=== PATIENT | female | born 1990 | race Caucasian/White ===

== ENCOUNTER → 2017-07-14 16:37 | Outpatient (CLI) | payer MEDICAID, SELFPAY ==
[2017-07-16 07:17] LABS: Hep A Ab, IgM Negative (Negative); Hepatitis B Core Antibody IgM Negative (Negative); Hepatitis B Surface Antigen Negative (Negative)
[2017-07-18 12:37] LABS: HIV Screen 4th Generation wRfx Non Reactive (Non Reactive); Hepatitis C Antibody <0.1 s/co ratio (0.0-0.9)
[2017-07-18 12:39] LABS: Rapid Plasma Reagin Ab Titer Non Reactive (NonRea<1:1)
[2017-07-18 12:39] LABS: Neisseria gonorrhoeae, NAA Negative (Negative)
== END ==
PROVIDERS: Family Provider Family Medicine; PCP Family Medicine; Visit Provider Nurse Practitioner Obstetrics & Gynecology
DX: Z72.51 High risk heterosexual behavior (principal)
CPT/HCPCS: 36415; 80074; 86592; 86703; 87491; 87591; G0432

== ENCOUNTER → 2017-08-28 13:08 | Outpatient (CLI) | payer MEDICAID, SELFPAY ==
--- NOTE | 2017-08-28 13:11 | MR_ITS ---
MR head/brain wo/w con HISTORY: Long-standing headaches. Severe migraine many years [different areas ITS.REASON: headache ORDERING PHYSICIAN: Mey Stanford MD PATIENT AGE: 26 years Comparison: Previous CT head 06/15/2015 TECHNIQUE: Standard multiplanar multiecho sequences are performed with and without contrast. 13 mL ProHance gadolinium contrast used for the postcontrast study FINDINGS: The patient is well known to us. . Normal anatomy.. The cranial cervical junction appears normal sella and pituitary unremarkable. Pituitary stalk midline. The ventricles are normal in size Sensitive FLAIR images reveal . Normal root, white matter patterns in differentiation.. No deep white matter high signal foci. . No territorial infarct.. No ischemic changes. Diffusion images specific for such show no acute or recent infarct. Nor ischemia. No extra-axial collections. Skull intact. Normal caliber and flow void precontrast and enhancement postcontrast at the dural venous sinuses. Postcontrast images show no abnormal areas of enhancement .. The visualized paranasal sinuses are overall fairly clear. No prominent findings Only trace sludge borderline mucosal thickening at ethmoid air cells. Mild engorgement nasal turbinates bilaterally degree inferior turbinate right greater than left.. . Skull and scalpSurvey unremarkable. Orbits unremarkable. IMPRESSION:........ 1. Negative MRI of brain pre-& postcontrast.. WNL 2. No Intracranial lesions. No abnormal areas of enhancement. 3. Paranasal sinuses fairly clear with only trace sludge Borderline mucosal thickening ethmoid air cells noted.
== END ==
PROVIDERS: Family Provider Family Medicine; PCP Family Medicine; Visit Provider Specialist
DX: R51 Headache (principal); H53.149 Visual discomfort, unspecified; F40.298 Other specified phobia
CPT/HCPCS: 70553; A9576

== ENCOUNTER → 2017-09-04 15:50 | Outpatient (CLI) | payer MEDICAID, SELFPAY ==
[2017-09-04 16:28] LABS: Basophils % 0.4 % (0.1-2.0); Eosinophils # 0.2 K/mm3 (0.0-0.4); Eosinophils % 2.1 % (0.1-12.0); Hematocrit 41.1 % (37.0-47.0); Lymphocytes # 1.9 K/mm3 (0.7-4.5); Lymphocytes % 26.8 K/mm3 (10-50); Mean Corpuscular HGB Conc 31.6 g/dL (31.8-35.4); Mean Corpuscular Hemoglobin 27.3 pg (27.0-31.2); Mean Corpuscular Volume 86.3 fl (81-99); Monocytes # 0.3 K/mm3 (0.1-1.0); Monocytes % 3.5 % (1.7-9.3); Neutrophils # 4.8 K/mm3 (1.8-7.8); Neutrophils % 67.3 % (37.0-80.0); Platelet Count 230 K/mm3 (142-424); Red Blood Count 4.76 M/mm3 (4.20-5.40); White Blood Count 7.1 K/mm3 (4.8-10.8)
[2017-09-04 18:21] LABS: Alanine Aminotransferase 21 U/L (12-78); Albumin Level 4.5 gm/dL (3.4-5.0); Albumin/Globulin Ratio 1.6 (1.1-1.8); Alkaline Phosphatase 74 U/L (46-116); Anion Gap 13.9 mEq/L (5-15); Aspartate Amino Transferase 10 U/L (15-37); Bilirubin,Total 0.3 mg/dL (0.2-1.0); Blood Urea Nitrogen 19 mg/dL (7-18); Carbon Dioxide 24 mmol/L (21.0-32.0); Chloride 107 mmol/L (98-107); Creatinine,Serum 0.99 mg/dL (0.55-1.02); Estimated Glomerular Filt Rate 67 ml/min (>60); GFR (African American) 81 ML/MIN (>60); Globulin 2.8 gm/dl (1.3-3.2); Glucose 94 mg/dL (74-106); Potassium 3.9 mmoL/L (3.5-5.1); Sodium 141 mmol/L (136-145); Thyroid Stimulating Hormone 0.77 uIU/ml (0.358-3.740); Total Protein,Serum 7.3 gm/dL (6.4-8.2)
[2017-09-06 16:59] LABS: Folate 9.6 ng/mL (>3.0); Vitamin B12 307 pg/mL (232-1245)
== END ==
PROVIDERS: Visit Provider Specialist
DX: R51 Headache (principal)
CPT/HCPCS: 36415; 80053; 82607; 82746; 84443; 85025

== ENCOUNTER → 2018-08-03 15:30 | Outpatient (POV) | payer SELFPAY | PROVIDERS: Visit Provider Specialist | DX: M79.642 Pain in left hand (principal); M79.641 Pain in right hand | CPT/HCPCS: 95886; 95910 ==

== ENCOUNTER → 2018-12-14 10:16 | Outpatient (CLI) | payer OTHER, SELFPAY ==
--- NOTE | 2018-12-14 10:21 | XR_ITS ---
PROCEDURE: XR HAND LT MIN 3V CLINICAL INDICATION: Hand pain COMPARISON: No exams were available for comparison FINDINGS: No fracture or dislocation. No lytic or blastic change. There is normal mineralization. The joint spaces are well-preserved. No significant degenerative/arthritic changes. No erosive changes evident. Other findings:None. IMPRESSION: No acute findings. Dictated by: Feliciano Rehman MD 12/14/2018 10:31 Electronically signed by Feliciano Rehman MD in [place] 12/14/2018 10:31
--- NOTE | 2018-12-14 10:21 | XR_ITS ---
PROCEDURE: XR HAND RT MIN 3V CLINICAL INDICATION: Hand pain Pain COMPARISON: No exams were available for comparison FINDINGS: No fracture or dislocation. No lytic or blastic change. There is normal mineralization. The joint spaces are well-preserved. No significant degenerative/arthritic changes. No erosive changes evident. Other findings:None. IMPRESSION: No acute findings. Dictated by: Feliciano Rehman MD 12/14/2018 11:29 Electronically signed by Feliciano Rehman MD in [place] 12/14/2018 11:29
== END ==
PROVIDERS: PCP Family Medicine; Visit Provider Orthopaedic Surgery
DX: M79.642 Pain in left hand (principal); M79.641 Pain in right hand
CPT/HCPCS: 73130

== ENCOUNTER → 2019-09-24 14:17 | Outpatient (CLI) | payer OTHER, SELFPAY ==
--- NOTE | 2019-09-24 14:19 | US_ITS ---
PROCEDURE: US TRANSVAGINAL CLINICAL INDICATION: pelvic pain, ovarian cyst COMPARISON: TVP US TRANSVAGINAL PREG from 06/27/2016 FINDINGS: IUD is seen which appears to be in good position. Nonspecific 1 cm left ovarian cyst noted which appears collapsed. Blood flow present in the ovaries. No cul-de-sac fluid UTERUS: 9cm x 5cmx 5cm with a combined endometrial thickness of 5mm LEFT OVARY: [id number] with a volume of 9.7ml. RIGHT OVARY: [id number] with a volume of 4ml. IMPRESSION: IUD in place. Collapse appearing left ovarian cyst otherwise negative Dictated by: Feliciano Rehman MD 09/24/2019 16:33 Electronically signed by Feliciano Rehman MD in [place] 09/24/2019 16:33
== END ==
PROVIDERS: PCP Family Medicine; Visit Provider Nurse Practitioner Obstetrics & Gynecology
DX: R10.2 Pelvic and perineal pain (principal); N83.209 Unspecified ovarian cyst, unspecified side
CPT/HCPCS: 76830

== ENCOUNTER → 2019-10-25 17:27 | Outpatient (CLI) | payer OTHER, SELFPAY ==
[2019-10-25 18:31] LABS: Urine Pregnancy, HCG Qual. Negative (Negative)
[2019-10-25 18:42] LABS: Basophils % 0.6 % (0.1-2.0); Eosinophils # 0.1 K/mm3 (0.0-0.4); Eosinophils % 0.8 % (0.1-12.0); Hematocrit 39.3 % (37.0-47.0); Hemoglobin 13.5 g/dL (12.2-16.2); Lymphocytes # 2.3 K/mm3 (0.7-4.5); Lymphocytes % 32.5 % (10-50); Mean Corpuscular HGB Conc 34.5 g/dL (31.8-35.4); Mean Corpuscular Hemoglobin 29.9 pg (27.0-31.2); Mean Corpuscular Volume 86.8 fl (81-99); Mean Platelet Volume 8.4 fl (7.4-10.4); Monocytes # 0.3 K/mm3 (0.1-1.0); Monocytes % 4.6 % (1.7-9.3); Neutrophils # 4.3 K/mm3 (1.8-7.8); Neutrophils % 61.6 % (37.0-80.0); Platelet Count 229 K/mm3 (142-424); Red Blood Count 4.52 M/mm3 (4.20-5.40); Red Cell Distribution Width 12.6 % (11.5-17.5)
[2019-10-25 20:16] LABS: Anion Gap 15.9 mEq/L (5-15); Blood Urea Nitrogen 11 mg/dl (7-17); Calcium 9.4 mg/dl (8.4-10.2); Carbon Dioxide 27 mmol/L (22.0-30.0); Chloride 102 mmol/L (98-107); Estimated Glomerular Filt Rate 74 ml/min (>60); GFR (African American) 89 ML/MIN (>60); Glucose 83 mg/dl (74-100); Potassium 3.9 mmoL/L (3.5-5.1); Sodium 141 mmol/L (136-145)
[2019-10-25 21:30] LABS: Coronavirus 19 IgG Antibody Negative (Negative); Coronavirus 19 IgM Antibody Negative (Negative)
== END ==
PROVIDERS: Visit Provider Nurse Practitioner Obstetrics & Gynecology
DX: Z01.818 Encounter for other preprocedural examination (principal); Z30.09 Encounter for other general counseling and advice on contraception
CPT/HCPCS: 36415; 80048; 81025; 85025; 86328

== ENCOUNTER 2019-10-27 06:06 | Day surgery (SDC) | payer OTHER, SELFPAY ==
[2019-10-27] VITALS (14 sets, daily range): BP systolic 91–115; BP diastolic 57–76; PULSE 62–86; RESP 12–21; TEMP 36.5–43; O2SAT 94–100; BMI 30.7
--- NOTE | 2019-10-27 08:13 | HMH.OPNOTE ---
Date of procedure: 10/27/19 Pre-op Diagnosis:: Desire for sterilization Post-op Diagnosis:: Desire for sterilization Procedure performed:: Laparoscopic bilateral salpingectomy Surgeon:: Lan Ritchie MD SOW FARM TECHNICIAN:: Miguel Roman Anesthesia: GETA Estimated blood loss (mL): 25 Clinical Note:: She is a 29-year-old 7 now para 4 aborta 3 who expressed desire for sterilization. The risks and benefits as well as the irreversibility of bilateral salpingectomy were discussed with the patient prior to surgery. Operative findings:: She had a normal-appearing anteverted uterus. The ovaries and tubes appeared normal. They were followed to their fimbriated end. The appendix was visualized appeared normal. The upper abdomen appeared normal. The rest the pelvis appeared normal. Operative note:: She was taken to the operating room where general anesthesia was found be adequate. She was prepped and draped in normal sterile fashion in the semilithotomy position. A weighted speculum was placed in the vagina and the anterior lip of the cervix was grasped with a tenaculum. I then inserted a [place] uterine manipulator into the cervical os. The balloon was then insufflated. I changed gloves and injected 10 cc of 0.5% ropivacaine around her umbilicus and made a small incision within the umbilicus. I inserted a Veress needle into the abdominal cavity. The peritoneal cavity was then insufflated with carbon dioxide gas to a pressure of 20 mmHg. I then inserted a 5 millimeter trocar under direct vision. I injected through and through the pubic hairline, made a small incision here and inserted an 8 mm trocar under direct vision. I identified the inferior epigastric artery on the left side, went lateral to these and injected through and through. I then placed a 5 mm trocar here under direct vision. The pelvis and upper abdomen were then inspected and the findings were as previously dictated. I grasped the right tube at the cornua and using harmonic scalpel on coagulation mode I cut through the tube. I then grasped the distal tube and using harmonic scalpel cut along the mesosalpinx. The tube was removed through 8 mm trocar site. This was similarly performed on the patient's left side. I then injected 30 cc of 0.5% ropivacaine into the pelvis. After assuring hemostasis the gas was let out of the abdomen and hemostasis was once again assured. The abdomen was then reinsufflated. The secondary trochars were removed under direct vision. The gas was let out her abdomen. The primary trocar was then removed. The 8 mm trocar site was closed deeply with 2-0 Vicryl suture followed by subcuticular 4-0 Monocryl suture. The 5 mm trocar sites were closed with subcuticular 4-0 Monocryl. Sterile dressings were applied. The patient tolerated the procedure well and was taken to the recovery room in excellent condition. All sponge instrument and needle counts were correct. The estimated blood loss was less than 25 cc. Condition: stable Disposition: PACU Specimens:: Bilateral fallopian tubes Complications:: None
--- NOTE | 2019-10-27 08:23 | P.PN_ITS ---
[facility] Anesthesia Checklist - Structural Data Admitted From: Home Planned Operative Procedure/s: lap sALPINGECTOMY Consent for Planned Operative Procedure(s) Verified: Yes - Additional verifications Anesthesia Reactions: No Hx Blood Transfusions: No Blood Transfusion Reaction: No - Airway Assessment C-Spine Mobility Assessed: Yes TMJ Mobility Assessed: Yes Dentition: Good Dentition - Neurological Assessment Level of Consciousness: Awake, Alert, Appropriate - Anesthesia Plan Anesthesia Risk discussed: Yes Anesthesia Plan: Verified ASA Class: II Anesthesia Type: General [facility] History I have reviewed the patient's past medical history: Yes Medical History: Reports:: Depression, Gastroesophageal Reflux Disease(GERD), Migraine Denies:: Cancer, Diabetes Mellitus Type 1, Diabetes Mellitus Type 2, Internal Pacemaker, MRSA, Seizures *Have you ever received a pneumonia vaccine?: No *Have you received a flu vaccine this season?: No Other Medical History: Denies: Blood Transfusion Reaction Anesthesia experience/problems:: none Laterality Cases: Left: Carpal Tunnel Release Other Surgeries: Yes: Dilation and Curettage, Hernia Repair, Other. No: Pacemaker Amputation: No Fractures: No - *Social History Last grade of school completed: High school graduate Smoking Status: Former smoker Tobacco Type: cigarettes # Packs/Day (cigarettes): 1 Alcohol Intake: never Alcohol Intake Frequency:: other Substance Use Type: denies use *Occupational Status:: employed Housing: house Household Members: spouse, children *Travel in the last 8 weeks: None - Psychiatric History Pschychiatric History:: Reports:: Depression Family Hx:: Cancer, Diabetes, Stroke [employer]ACT[employer]URSING [employer]AC[employer] history: Spontaneous , Additional [employer] NURSING [employer]AC[employer] History
--- NOTE | 2019-10-27 08:24 | P.PN_ITS ---
[facility] Anesthesia Record Part I Intake, IV Amount: 1,500 Estimated blood loss (mL): 25 Urine output (mL): 0 Blood Pressure: 108/69 SaO2: 96 Pulse Rate: 65 Respiratory Rate: 12 Temperature: 99 F Patient is:: Awake, Stable Stable to PACU at:: 08:20
--- NOTE | 2019-10-27 14:28 | HMH.ANESII ---
[facility] Anesthesia Record Part II Discharge Time: 08:53 Destination: Surgical Day Care (OP Surgery) PACU nurse assessment reviewed?: Yes Patient Condition:: Good Anesthesia Complications:: None Swallowing reflex intact?: Yes Cyanosis?: No Blood Pressure: 92/63 Pulse Rate: 70 Temperature: 97.7 F Mental Status: Alert & Oriented Pain level:: 0 Nausea and/or vomitting:: None Intake, IV Amount: 0
== END 2019-10-27 09:59 | disposition home or self-care (01) ==
LOC: OR 06:07
PROVIDERS: PCP Family Medicine; Visit Provider Nurse Practitioner Obstetrics & Gynecology
PROC: (CPT 58661; principal; 2019-10-27 07:30)
DX: Z30.2 Encounter for sterilization (principal); F32.9 Major depressive disorder, single episode, unspecified; K21.9 Gastro-esophageal reflux disease without esophagitis; G43.909 Migraine, unspecified, not intractable, without status migrainosus; Z87.891 Personal history of nicotine dependence; Z83.3 Family history of diabetes mellitus; Z82.5 Family history of asthma and other chronic lower respiratory diseases; Z80.9 Family history of malignant neoplasm, unspecified; Z79.899 Other long term (current) drug therapy
CPT/HCPCS: 58661; 96374; J2405; J2710

== ENCOUNTER 2019-11-09 23:38 | Emergency (ER) | payer OTHER, SELFPAY ==
[2019-11-09 23:46] VITALS: BP 120/77; PULSE 136; RESP 17; TEMP 36.7; O2SAT 95; BMI 31.7
[2019-11-10] VITALS: BP 132/79; PULSE 112; RESP 18; O2SAT 98
--- NOTE | 2019-11-10 00:01 | XR_ITS ---
PROCEDURE: XR CHEST 2V CLINICAL HISTORY: cough Chest pain and cough COMPARISON: No exams were available for comparison FINDINGS: The cardiomediastinal silhouette and pulmonary vascularity are within normal limits. The lungs are clear without infiltrates, suspicious nodules, or pleural effusions. No acute bony abnormalities. IMPRESSION: No acute findings. Dictated by: Feliciano Rehman MD 11/10/2019 05:30 Feliciano Rehman MD in [place] 11/10/2019 05:30
[2019-11-10 00:18] LABS: Microscopic, Urine URINE MICROSCOPIC (MICROSCOPIC)
[2019-11-10 00:22] LABS: Basophils # 0.1 K/mm3 (0-0.2); Basophils % 0.2 % (0.1-2.0); Eosinophils # 0.1 K/mm3 (0.0-0.4); Eosinophils % 0.5 % (0.1-12.0); Hemoglobin 13.2 g/dL (12.2-16.2); Lymphocytes # 1.2 K/mm3 (0.7-4.5); Lymphocytes % 5.5 % (10-50); Mean Corpuscular HGB Conc 34.8 g/dL (31.8-35.4); Mean Corpuscular Volume 83.3 fl (81-99); Monocytes # 0.6 K/mm3 (0.1-1.0); Monocytes % 2.5 % (1.7-9.3); Neutrophils # 20.7 K/mm3 (1.8-7.8); Neutrophils % 91.2 % (37.0-80.0); Platelet Count 246 K/mm3 (142-424); Red Blood Count 4.56 M/mm3 (4.20-5.40); Red Cell Distribution Width 12.7 % (11.5-17.5); White Blood Count 22.6 K/mm3 (4.8-10.8)
[2019-11-10 00:30] VITALS: BP 129/70; PULSE 98; RESP 16; O2SAT 98
[2019-11-10 00:30] LABS: Alanine Aminotransferase 10 U/L (12-78); Albumin Level 4.6 g/dl (3.5-5.0); Albumin/Globulin Ratio 1.2 (1.1-1.8); Alkaline Phosphatase 101 U/L (38-126); Anion Gap 15.6 mEq/L (5-15); Aspartate Amino Transferase 21 U/L (14-36); Bilirubin,Total 0.6 mg/dl (0.2-1.3); Blood Urea Nitrogen 14 mg/dl (7-17); Calcium 9.6 mg/dl (8.4-10.2); Carbon Dioxide 24 mmol/L (22.0-30.0); Chloride 103 mmol/L (98-107); Creatinine Clearance Estimated 123 mL/min (50-200); Estimated Glomerular Filt Rate 84 ml/min (>60); GFR (African American) 101 ML/MIN (>60); Globulin 3.8 g/dL (1.3-3.2); Glucose 112 mg/dl (74-100); Potassium 3.6 mmoL/L (3.5-5.1); Sodium 139 mmol/L (136-145); Total Protein,Serum 8.4 g/dl (6.3-8.2)
[2019-11-10 00:31] LABS: Appearance,Urine SL CLOUDY (Clear); Bilirubin,Urine Negative (Negative); Blood, Urine 1+ (Negative); Color,Urine YELLOW (Yellow); Glucose,Urine (UA) Negative (Negative); Ketones,Urine Negative (Negative); Leukocyte Esterase,Urine 1+ (Negative); Nitrate,Urine Negative (Negative); Protein,Urine Negative (Negative); Specific Gravity, Urine 1.025 (1.005-1.030); Urobilinogen,Urine 0.2 EU/dl (0.2)
[2019-11-10 00:37] LABS: MANUAL DIFFERENTIAL MANUAL DIFFERENTIAL (MANUAL DIFF)
[2019-11-10 00:38] LABS: Strep Scrn Group A (Rapid) Negative (Negative)
[2019-11-10 00:49] LABS: Bacteria,Urine 1+ /lpf; Mucus,Urine 1+ /lpf
[2019-11-10 01:00] VITALS: BP 113/69; PULSE 120; RESP 17; O2SAT 98
[2019-11-10 01:15] LABS: C-Reactive Protein 15.3 mg/L (0-4)
[2019-11-10 01:19] LABS: Lactic Acid 0.9 mmol/L (0.7-2.1)
[2019-11-10 01:30] LABS: Erythrocyte Sedimentation Rate 41 mm/hr (0-20)
[2019-11-10 01:33] LABS: Eosinophils % 1 % (0-3); Lymphocytes % 5 % (10-50); Neutrophils % 94 % (42-76); Platelet Estimate Normal; Stomatocytes 1+; Total Cells Counted 100
--- NOTE | 2019-11-10 01:34 | HMH.EDFEV ---
ED Disposition Clinical Impression: Bronchitis Disposition: Home, Self-Care Condition on Discharge: Good Instructions: DI for Fever (Symptom) -- Adult Additional Instructions: fluids and see pcp for follo wup Prescriptions: levoFLOXacin [Levaquin 500mg tab] 500 mg PO DAILY #7 tab Transmission Status: Pending to [facility] Referrals: Juan Hurst MD [Primary Care Provider] - - Critical Care Critical Care Time: No Attestation: On 11/09/19, the high probability of a clinically significant, sudden or life threatening deterioration of the following system(s) required my full and direct attention, intervention and personal management. The time I documented below is in addition to time spent performing reported procedures but includes the following listed in this critical care notation. Medical Decision Making - Medical Records Medical records reviewed: Yes: I reviewed the patient's medical records. - Mehdi Inquiry Pt receiving controlled substance: No Vital Signs: 11/09/19 23:46 11/10/19 00:00 11/10/19 00:30 Temperature 98.1 F Temperature Source Oral Pulse Rate [Right Brachial] 136 H 112 H 98 H Respiratory Rate 17 18 16 Blood Pressure [Right Arm] 120/77 132/79 129/70 Blood Pressure Mean [Right Arm] 91 96 89 Blood Pressure Source [Right Arm] Automatic Cuff Automatic Cuff Automatic Cuff Blood Pressure Position [Right Arm] Sitting Supine Supine 02 Sat by Pulse Oximetry 95 98 98 Oxygen Delivery Method Room Air Room Air Room Air 11/10/19 01:00 Temperature Temperature Source Pulse Rate [Right Brachial] 120 H Respiratory Rate 17 Blood Pressure [Right Arm] 113/69 Blood Pressure Mean [Right Arm] 83 Blood Pressure Source [Right Arm] Automatic Cuff Blood Pressure Position [Right Arm] Supine 02 Sat by Pulse Oximetry 98 Oxygen Delivery Method Room Air - Lab Data Lab results reviewed: Yes: I reviewed the patient's lab results. Lab Results 11/10/19 00:00: Urine Color Yellow, Urine Appearance Sl cloudy, Urine pH 6.0, Ur Specific [place] 1.025, Urine Protein Negative, Urine Glucose (UA) Negative, Urine Ketones Negative, Urine Blood 1+, Urine Nitrate Negative, Urine Bilirubin Negative, Urine Urobilinogen 0.2, Ur Leukocyte Esterase 1+ A, Urine RBC 5-10, Urine WBC 5-10, Ur Squamous Epith Cells 3-5, Urine Bacteria 1+, Urine Mucus 1+ 11/10/19 00:00: Influenza Type A Ag Negative, Influenza Type B Ag Negative 11/10/19 00:00: Group A Strep Rapid Negative 11/10/19 00:00: WBC 22.6 H*, RBC 4.56, Hgb 13.2, Hct 38.0, MCV 83.3, MCH 29.0, MCHC 34.8, RDW 12.7, Plt Count 246, MPV 8.0, Neut % (Auto) 91.2 H, Lymph % (Auto) 5.5 L, Daniels % (Auto) 2.5, Eos % (Auto) 0.5, Baso % (Auto) 0.2, Neut # (Auto) 20.7 H, Lymph # (Auto) 1.2, Daniels # (Auto) 0.6, Eos # (Auto) 0.1, Baso # (Auto) 0.1, Total Counted 100, Neutrophils % (Manual) 94 H, Lymphocytes % (Manual) 5 L, Eosinophils % (Manual) 1, Platelet Estimate Normal, Stomatocytes 1+ 11/10/19 00:00: Sodium 139, Potassium 3.6, Chloride 103, Carbon Dioxide 24, Anion Gap 15.6 H, BUN 14, Creatinine 0.80, Estimated Creat Clear 123, Estimated GFR 84, Est GFR ( Amer) 101, Glucose 112 H, Calcium 9.6, Total Bilirubin 0.6, AST 21, ALT 10 L, Alkaline Phosphatase 101, Total Protein 8.4 H, Albumin 4.6, Globulin 3.8 H, Albumin/Globulin Ratio 1.2 11/10/19 00:00: ESR 41 H 11/10/19 00:00: C-Reactive Protein 15.3 H 11/10/19 01:00: Lactate 0.9 Result diagrams: 11/10/19 00:00 11/10/19 00:00 Orders (Tests/Meds): ORDERS Category Date Time Status XR chest 2V Stat Exams 11/10/19 00:01 Taken Coronavirus 19 Swab (OUTPT) Routine Lab 11/10/19 00:06 Received Blood Culture Stat Micro 11/10/19 00:46 Ordered Strep Screen Confirmation Stat Micro 11/10/19 00:00 Received Urine Culture Stat Micro 11/10/19 00:00 Received - Radiology Data #1 Image(s): Chest Image Reviewed: Yes I reviewed the patient's radiology image Preliminary Findings: Normal/NAD Fever HPI - Gen
[2019-11-10 01:50] VITALS: BP 132/75; PULSE 112; RESP 15; TEMP 36.8; O2SAT 98
== END 2019-11-10 01:52 | disposition home or self-care (01) ==
PROVIDERS: Emergency Provider Emergency Medicine; PCP Family Medicine
DX: J20.9 Acute bronchitis, unspecified (principal); K21.9 Gastro-esophageal reflux disease without esophagitis; G43.709 Chronic migraine without aura, not intractable, without status migrainosus; Z87.891 Personal history of nicotine dependence
CPT/HCPCS: 71046; 80053; 81001; 83605; 85007; 85025; 85651; 86140; 87040; 87086; 87088; 87186; 87275; 87276; 87430; 96365; 99283; 99284; U0003

== ENCOUNTER → 2019-12-31 19:11 | Outpatient (CLI) | payer OTHER, SELFPAY | PROVIDERS: PCP Nurse Practitioner Family; Visit Provider Family Medicine | DX: Z03.818 Encounter for observation for suspected exposure to other biological agents ruled out (principal) | CPT/HCPCS: U0003 ==

== ENCOUNTER → 2020-01-05 14:36 | Outpatient (CLI) | payer OTHER, SELFPAY ==
[2020-01-05 15:13] LABS: Adenovirus,PCR Not Detected (NotDetected); Bordetella Pertussis Not Detected (NotDetected); Chlamydophila Pneumoniae, PCR Not Detected (NotDetected); Coronavirus 19, PCR Not Detected (NotDetected); Coronavirus 229E Not Detected (NotDetected); Coronavirus NL63 Not Detected (NotDetected); Coronavirus OC43 Not Detected (NotDetected); Coronovirus HKU1,PCR Not Detected (NotDetected); Human Metapneumovirus Not Detected (NotDetected); Influenza A, PCR Not Detected (NotDetected); Influenza AH1, 2009 Not Detected (NotDetected); Influenza AH1, PCR Not Detected (NotDetected); Influenza AH3,PCR Not Detected (NotDetected); Influenza B, PCR Not Detected (NotDetected); Mycoplasma Pneumoniae, PCR Not Detected (NotDetected); Parainfluenza 1, PCR Not Detected (NotDetected); Parainfluenza 2, PCR Not Detected (NotDetected); Parainfluenza 3, PCR Not Detected (NotDetected); Parainfluenza 4, PCR Not Detected (NotDetected); Respiratory Syncytial Virus Not Detected (NotDetected); Rhinovirus/Enterovirus Not Detected (NotDetected)
[2020-01-05 15:28] LABS: Basophils % 0.4 % (0.1-2.0); Eosinophils # 0.2 K/mm3 (0.0-0.4); Eosinophils % 2.5 % (0.1-12.0); Hematocrit 41.8 % (37.0-47.0); Hemoglobin 13.4 g/dL (12.2-16.2); Lymphocytes # 1.8 K/mm3 (0.7-4.5); Lymphocytes % 26.6 % (10-50); Mean Corpuscular Hemoglobin 28.5 pg (27.0-31.2); Mean Corpuscular Volume 89.1 fl (81-99); Mean Platelet Volume 8.4 fl (7.4-10.4); Monocytes # 0.3 K/mm3 (0.1-1.0); Monocytes % 5.2 % (1.7-9.3); Neutrophils # 4.3 K/mm3 (1.8-7.8); Neutrophils % 65.2 % (37.0-80.0); Platelet Count 232 K/mm3 (142-424); Red Cell Distribution Width 12.7 % (11.5-17.5); White Blood Count 6.5 K/mm3 (4.8-10.8)
== END ==
PROVIDERS: PCP Family Medicine; Visit Provider Family Medicine
DX: Z03.818 Encounter for observation for suspected exposure to other biological agents ruled out (principal)
CPT/HCPCS: 36415; 85025; 87581; 87633; 87798; U0003

== ENCOUNTER → 2020-02-22 18:51 | Outpatient (CLI) | payer OTHER, SELFPAY ==
[2020-02-25 20:14] LABS: Neisseria gonorrhoeae, NAA Negative (Negative)
== END ==
PROVIDERS: Visit Provider Nurse Practitioner Obstetrics & Gynecology
DX: Z72.51 High risk heterosexual behavior (principal)
CPT/HCPCS: 87491; 87591

== ENCOUNTER → 2020-02-25 10:23 | Outpatient (CLI) | payer OTHER, SELFPAY ==
--- NOTE | 2020-02-25 10:29 | US_ITS ---
PROCEDURE: US TRANSVAGINAL CLINICAL INDICATION: Generalized abdominal pain and pelvic pain COMPARISON: US US TRANSVAGINAL from 09/24/2019 FINDINGS: UTERUS: 9cm x 6cmx 5cm. No uterine mass apparent. LEFT OVARY: [id number] with a volume of 10.3ml. RIGHT OVARY: [id number] with a volume of 5.8ml. There is an IUD in place. This makes determination of the endometrial thickness difficult. No adnexal mass apparent. No cul-de-sac fluid. IMPRESSION: IUD in place otherwise negative pelvic ultrasound Dictated by: Feliciano Rehman MD 02/25/2020 17:12 Feliciano Rehman MD in [place] 02/25/2020 17:12
== END ==
PROVIDERS: PCP Family Medicine; Visit Provider Nurse Practitioner Obstetrics & Gynecology
DX: R10.2 Pelvic and perineal pain (principal); R10.9 Unspecified abdominal pain
CPT/HCPCS: 76830

== ENCOUNTER → 2020-02-28 16:03 | Outpatient (CLI) | payer OTHER, SELFPAY ==
--- NOTE | 2020-02-28 16:11 | XR_ITS ---
PROCEDURE: XR CHEST PORTABLE CLINICAL HISTORY: COVID TESTING Cough and congestion COMPARISON: CR XR CHEST 2V from 11/10/2019 FINDINGS: The cardiomediastinal silhouette and pulmonary vascularity are within normal limits. Lungs are clear. Mild thoracic curvature convex right. IMPRESSION: No acute findings. Dictated by: Feliciano Rehman MD 02/28/2020 17:12 Feliciano Rehman MD in [place] 02/28/2020 17:12
[2020-02-28 17:57] LABS: Basophils % 0.2 % (0.1-2.0); Eosinophils # 0.1 K/mm3 (0.0-0.4); Hematocrit 44.2 % (37.0-47.0); Hemoglobin 14.3 g/dL (12.2-16.2); Lymphocytes # 1.7 K/mm3 (0.7-4.5); Lymphocytes % 17.6 % (10-50); Mean Corpuscular HGB Conc 32.5 g/dL (31.8-35.4); Mean Corpuscular Hemoglobin 28.8 pg (27.0-31.2); Mean Corpuscular Volume 88.8 fl (81-99); Mean Platelet Volume 8.8 fl (7.4-10.4); Monocytes # 0.3 K/mm3 (0.1-1.0); Monocytes % 3.3 % (1.7-9.3); Neutrophils # 7.4 K/mm3 (1.8-7.8); Neutrophils % 77.9 % (37.0-80.0); Platelet Count 257 K/mm3 (142-424); Red Blood Count 4.97 M/mm3 (4.20-5.40); Red Cell Distribution Width 13.3 % (11.5-17.5); White Blood Count 9.5 K/mm3 (4.8-10.8)
[2020-02-28 18:22] LABS: Strep Scrn Group A (Rapid) Negative (Negative)
[2020-03-01 13:17] LABS: Covid-19 Nasal PCR Sendout Lex Not Detected
== END ==
PROVIDERS: PCP Family Medicine; Visit Provider Nurse Practitioner Family
DX: Z03.818 Encounter for observation for suspected exposure to other biological agents ruled out (principal)
CPT/HCPCS: 36415; 71045; 85025; 87275; 87276; 87430; U0004

== ENCOUNTER → 2020-09-20 17:46 | Outpatient (CLI) | payer OTHER, SELFPAY ==
[2020-09-22 21:38] LABS: Neisseria gonorrhoeae, NAA Negative (Negative)
== END ==
PROVIDERS: Visit Provider Nurse Practitioner Obstetrics & Gynecology
DX: R10.2 Pelvic and perineal pain (principal); Z72.51 High risk heterosexual behavior
CPT/HCPCS: 87491; 87591

== ENCOUNTER → 2020-09-22 13:49 | Outpatient (CLI) | payer OTHER, SELFPAY ==
--- NOTE | 2020-09-22 13:50 | US_ITS ---
PROCEDURE: US TRANSVAGINAL CLINICAL INDICATION: Pelvic Pain COMPARISON: US US TRANSVAGINAL from 02/25/2020 FINDINGS: UTERUS: 9cm x 6cmx 5cm with a combined endometrial thickness of 1.7mm. There is an IUD in place which appears in satisfactory position with posterior acoustical shadowing. Endometrial thickness is 2 mm. LEFT OVARY: [id number] with a volume of 6ml. RIGHT OVARY: [id number] with a volume of 12.5ml. There is a septated right renal cyst measuring 2.7 x 1.9 cm. No cul-de-sac fluid apparent. IMPRESSION: IUD in place. 2.7 cm septated right ovarian cyst. Consider 3 to six-month follow-up to confirm stability or resolution. Dictated by: Feliciano Rehman MD 09/22/2020 15:41 Feliciano Rehman MD in [place] 09/22/2020 15:41
== END ==
PROVIDERS: PCP Family Medicine; Visit Provider Nurse Practitioner Obstetrics & Gynecology
DX: R10.2 Pelvic and perineal pain (principal)
CPT/HCPCS: 76830

== ENCOUNTER → 2020-09-28 16:17 | Outpatient (CLI) | payer OTHER, SELFPAY ==
[2020-09-28 18:05] LABS: Erythrocyte Sedimentation Rate 16 mm/hr (0-20)
== END ==
PROVIDERS: Visit Provider Family Medicine
DX: G43.709 Chronic migraine without aura, not intractable, without status migrainosus (principal)
CPT/HCPCS: 85651

== ENCOUNTER → 2020-10-10 14:31 | Outpatient (CLI) | payer OTHER, SELFPAY ==
[2020-10-10 14:49] LABS: Basophils # 0.1 K/mm3 (0-0.2); Basophils % 0.9 % (0.1-2.0); Eosinophils # 0.2 K/mm3 (0.0-0.4); Hematocrit 40.1 % (37.0-47.0); Lymphocytes % 24.9 % (10-50); Mean Corpuscular HGB Conc 34.9 g/dL (31.8-35.4); Mean Corpuscular Hemoglobin 29.6 pg (27.0-31.2); Mean Corpuscular Volume 84.8 fl (81-99); Mean Platelet Volume 8.4 fl (7.4-10.4); Monocytes # 0.4 K/mm3 (0.1-1.0); Monocytes % 4.2 % (1.7-9.3); Neutrophils # 5.6 K/mm3 (1.8-7.8); Neutrophils % 67.9 % (37.0-80.0); Platelet Count 276 K/mm3 (142-424); Red Blood Count 4.73 M/mm3 (4.20-5.40); Red Cell Distribution Width 13.1 % (11.5-17.5); White Blood Count 8.2 K/mm3 (4.8-10.8)
[2020-10-10 15:16] LABS: Alanine Aminotransferase 12 U/L (12-78); Albumin Level 4.7 g/dl (3.5-5.0); Albumin/Globulin Ratio 1.6 (1.1-1.8); Alkaline Phosphatase 66 U/L (38-126); Amylase 55 U/L (30-110); Anion Gap 14.6 mEq/L (5-15); Aspartate Amino Transferase 18 U/L (14-36); Bilirubin,Total 0.4 mg/dl (0.2-1.3); Blood Urea Nitrogen 14 mg/dl (7-17); Calcium 9.1 mg/dl (8.4-10.2); Carbon Dioxide 24 mmol/L (22.0-30.0); Chloride 107 mmol/L (98-107); Estimated Glomerular Filt Rate 84 ml/min (>60); GFR (African American) 101 ML/MIN (>60); Glucose 99 mg/dl (74-100); Lipase 98 U/L (23-300); Potassium 4.6 mmoL/L (3.5-5.1); Sodium 141 mmol/L (136-145); Total Protein,Serum 7.7 g/dl (6.3-8.2)
[2020-10-10 15:21] LABS: C-Reactive Protein 1.3 mg/L (0-4)
[2020-10-10 15:37] LABS: Procalcitonin < 0.030 ng/mL (0.0-2.0)
[2020-10-10 15:57] LABS: Erythrocyte Sedimentation Rate 39 mm/hr (0-20)
== END ==
PROVIDERS: Visit Provider Surgery
DX: R10.32 Left lower quadrant pain (principal)
CPT/HCPCS: 36415; 80053; 82150; 83690; 84145; 85025; 85651; 86140

== ENCOUNTER → 2020-10-17 10:32 | Outpatient (CLI) | payer OTHER, SELFPAY ==
--- NOTE | 2020-10-17 10:39 | CT_ITS ---
PROCEDURE: CT ABDOMEN PELVIS W CON CLINICAL INDICATION: Left lower quad pain COMPARISON: US US TRANSVAGINAL from 09/22/2020 TECHNIQUE: IV Contrast: 75ML Isovue 370 Oral Contrast None Axial images obtained with sagittal and coronal reformats. All CT scans at the facility use one or more dose reduction, viz: automated exposure control, ma/kV adjustment per patient size (including targeted exams where dose is matched to indication, i.e. head), or iterative reconstruction technique. FINDINGS: LOWER THORAX: 3 mm noncalcified nodule right middle lobe nonspecific ABDOMEN & PELVIS: The liver, spleen, adrenal glands, and pancreas has an unremarkable appearance. There is a gallstone noted. No renal or ureteral calculi. No hydronephrosis. There has been prior hernia repair in the umbilical region with mesh present No evidence of appendicitis. No intestinal obstruction or free air. There is an IUD present. The uterus is somewhat prominent with some heterogeneous enhancement. There is prominence of the periuterine veins on the left. There is a small left ovarian cyst at 17 mm. No cul-de-sac fluid apparent. No acute bony findings. IMPRESSION: 1. Prominent left periuterine veins which may be seen with pelvic congestion syndrome. 2. Mild prominence of the uterus nonspecific Dictated by: Feliciano Rehman MD 10/18/2020 12:30 Feliciano Rehman MD in [place] 10/18/2020 12:30
== END ==
PROVIDERS: PCP Family Medicine; Visit Provider Surgery
DX: R10.32 Left lower quadrant pain (principal)
CPT/HCPCS: 74177; Q9967

== ENCOUNTER → 2020-11-15 15:41 | Outpatient (CLI) | payer OTHER, SELFPAY ==
[2020-11-15 16:18] LABS: Basophils # 0.1 K/mm3 (0-0.2); Basophils % 0.7 % (0.1-2.0); Eosinophils # 0.2 K/mm3 (0.0-0.4); Eosinophils % 1.9 % (0.1-12.0); Hematocrit 43.7 % (37.0-47.0); Hemoglobin 14.1 g/dL (12.2-16.2); Lymphocytes % 21.7 % (10-50); Mean Corpuscular HGB Conc 32.3 g/dL (31.8-35.4); Mean Corpuscular Hemoglobin 28.9 pg (27.0-31.2); Mean Corpuscular Volume 89.7 fl (81-99); Mean Platelet Volume 8.5 fl (7.4-10.4); Monocytes # 0.4 K/mm3 (0.1-1.0); Monocytes % 4.2 % (1.7-9.3); Neutrophils # 6.6 K/mm3 (1.8-7.8); Neutrophils % 71.4 % (37.0-80.0); Platelet Count 308 K/mm3 (142-424); Red Blood Count 4.88 M/mm3 (4.20-5.40); Red Cell Distribution Width 13.1 % (11.5-17.5); White Blood Count 9.3 K/mm3 (4.8-10.8)
[2020-11-15 17:47] LABS: Anion Gap 15.6 mEq/L (5-15); Blood Urea Nitrogen 15 mg/dl (7-17); Calcium 9.3 mg/dl (8.4-10.2); Carbon Dioxide 28 mmol/L (22.0-30.0); Chloride 101 mmol/L (98-107); Estimated Glomerular Filt Rate 97 ml/min (>60); GFR (African American) 117 ML/MIN (>60); Glucose 101 mg/dl (74-100); Potassium 4.6 mmoL/L (3.5-5.1); Sodium 140 mmol/L (136-145)
[2020-11-15 20:36] LABS: HCG Qualitative, Serum Negative (Negative)
== END ==
PROVIDERS: Visit Provider Nurse Practitioner Obstetrics & Gynecology
DX: Z01.818 Encounter for other preprocedural examination (principal); Z20.822 Contact with and (suspected) exposure to COVID-19
CPT/HCPCS: 36415; 80048; 84703; 85025; U0003

== ENCOUNTER 2020-11-17 07:04 | Day surgery (SDC) | payer OTHER, SELFPAY ==
[2020-11-16 10:23] VITALS: BMI 29.2
[2020-11-17] VITALS (15 sets, daily range): BP systolic 99–156; BP diastolic 57–106; PULSE 66–87; RESP 14–20; TEMP 36.2–36.7; O2SAT 95–99
--- NOTE | 2020-11-17 09:41 | HMH.OPNOTE ---
Date of procedure: 11/17/20 Pre-op Diagnosis:: Severe left lower quadrant pain, pelvic congestion syndrome Post-op Diagnosis:: Left lower quadrant pain, pelvic congestion syndrome, endometriosis Procedure performed:: Diagnostic laparoscopy, left oophorectomy Surgeon:: Lan Ritchie MD SHIRRER:: Other (Francesco Carrizales) Anesthesia: GETA Estimated blood loss (mL): 50 Clinical Note:: She is a 30-year-old lady who complains of severe left lower quadrant pain. She says it feels achy all the time and then at other times it is sharp pain. She has been seen by Dr. Chaudhary and also had a CT scan that was negative except for some possible pelvic congestion syndrome on the left.. She does have some element of IBS as well. After having discussed the risks and benefits we elected perform a diagnostic laparoscopy with possible left oophorectomy. She has had a previous bilateral salpingectomy. Operative findings:: She had an anteverted somewhat bulky uterus. The IUD was still in place. Right ovary appeared completely normal. Both tubes have been removed. The left ovary had a small area of powder burn consistent with endometriosis. The veins did not really seem to be that prominent. The rest the pelvis appeared normal there was no evidence of other endometriosis. The upper abdomen appeared normal. The appendix was visualized and appeared normal as well. Operative note:: She was taken the operating room where general anesthesia was found be adequate. She is prepped draped normal sterile fashion in the semilithotomy position. Weighted speculum placed in vagina and the anterior lip of the cervix was grasped with a tenaculum. I then inserted an acorn uterine retractor. Her IUD strings were present. I then changed gloves and injected 10 cc of ropivacaine around the umbilicus and made a small incision within the umbilicus. I inserted a Veress needle into the abdominal cavity and then insufflated the abdominal cavity to a pressure of 20 mmHg. I then inserted a 5 mm trocar under direct vision. I injected through and through the pubic hairline, made a small incision here and inserted an 11 mm trocar under direct vision. Identified the inferior epigastric arteries on the left side, went lateral to these and injected through and through. I then inserted a small 5 mm trocar here under direct vision. The findings were previously dictated. I then grasped her left round ligament and opened this up with harmonic scalpel. Then using harmonic scalpel on coagulation mode I cut through the utero-ovarian ligament. I then freed up the ovary on its infundibulopelvic ligament using harmonic scalpel. I was well above the ureter. I then placed 2 Endoloops on the infundibulopelvic ligament. The ovary was then cut away. This was removed through an Endo Catch bag that was passed through the 11 mm trocar. Pelvis was then rinsed the pelvis well and once again hemostasis was assured. I let the gas out of the abdomen and checked for hemostasis which was adequate. I then elected to place a small piece of Surgicel around the left utero-ovarian ligament stump adjacent to the uterus. We then injected approximately 3 cc of 0.25% ropivacaine into the pelvis. The secondary trochars were then removed under direct vision. The sites were hemostatic. The gas was of the abdomen once again and I checked for hemostasis. The primary trocar and camera were then removed together. The 11 mm trocar site was closed first deeply with a [id number] 2-0 Vicryl suture followed by running subcuticular 4 Monocryl suture. The 5 mm trocar sites were closed with subcuticular 4-0 Monocryl. She tolerated procedure well and was taken to recovery room in excellent condition. All sponge, instrument and needle counts were correct. The estimated blood loss was approximately 50 cc. Condition: stable Disposition: PACU Specimens:: Left ovary Complications:: None
--- NOTE | 2020-11-17 09:50 | P.PN_ITS ---
[facility] Anesthesia Checklist - Patient Identification Patient Identification: Arm Band, Verbal (Name & ) - Structural Data Admitted From: Home Planned Operative Procedure/s: diag. lap Consent for Planned Operative Procedure(s) Verified: Yes Verified Documents: History and Physical - NPO Status Verified Time NPO: 00:00 - Chart Verification Results Verified: CBC, BMP - Additional verifications Patient : No Anesthesia Reactions: No Hx Blood Transfusions: No Blood Transfusion Reaction: No Cephalosporin Allergy: No Previous Colonoscopy: No - Cardiovascular Assessment Heart Sounds: S1 & S2 Pulse Strength: Baseline Pulse Rhythm: Regular Peripheral Edema: No - Airway Assessment C-Spine Mobility Assessed: Yes TMJ Mobility Assessed: Yes Dentition: Good Dentition - Neurological Assessment Level of Consciousness: Awake, Alert, Appropriate Hx Seizures: No Numbness or tingling in extremities: No - Anesthesia Plan Anesthesia Risk discussed: Yes Anesthesia Plan: Verified ASA Class: II Anesthesia Type: General [facility] History I have reviewed the patient's past medical history: Yes Medical History: Reports:: Depression, Gastroesophageal Reflux Disease(GERD), Migraine Denies:: Cancer, Diabetes Mellitus Type 1, Diabetes Mellitus Type 2, Internal Pacemaker, MRSA, Seizures *Have you ever received a pneumonia vaccine?: No *Have you received a flu vaccine this season?: No Other Medical History: Denies: Blood Transfusion Reaction Anesthesia experience/problems:: none Laterality Cases: Left: Carpal Tunnel Release Other Surgeries: Yes: Dilation and Curettage, Hernia Repair, Tubal Ligation, Other. No: Pacemaker Amputation: No Fractures: No - *Social History Last grade of school completed: High school graduate Smoking Status: Current every day smoker Tobacco Type: cigarettes # Packs/Day (cigarettes): 1 Alcohol Intake: never Alcohol Intake Frequency:: other Substance Use Type: denies use *Occupational Status:: unemployed Housing: house Household Members: spouse *Travel in the last 8 weeks: None - Psychiatric History Pschychiatric History:: Reports:: Depression Family Hx:: Cancer, Diabetes, Stroke [employer] history: Spontaneous , Additional [employer] History
--- NOTE | 2020-11-17 09:52 | HMH.ANESI ---
[facility] Anesthesia Record Part I Intake, IV Amount: 700 Estimated blood loss (mL): 50 Urine output (mL): 0 Blood Products used (#): none Blood Pressure: 150/68 SaO2: 95 Pulse Rate: 77 Respiratory Rate: 18 Temperature: 97.5 F Patient is:: Awake, Stable Stable to PACU at:: 09:48
--- NOTE | 2020-11-17 10:34 | SUR.PHASEI ---
1028- detailed report called to RUBENS Cummings in PACU.
--- NOTE | 2020-11-17 12:42 | HMH.ANESII ---
[facility] Anesthesia Record Part II Discharge Time: 10:18 Destination: Surgical Day Care (OP Surgery) PACU nurse assessment reviewed?: Yes Patient Condition:: Good Anesthesia Complications:: None Swallowing reflex intact?: Yes Cyanosis?: No Blood Pressure: 110/71 Pulse Rate: 78 Temperature: 97.2 F Mental Status: Alert & Oriented Pain level:: 0 Nausea and/or vomitting:: None Intake, IV Amount: 50
[2020-11-17 13:05] LABS: Basophils % 0.2 % (0.1-2.0); Eosinophils % 0.1 % (0.1-12.0); Hematocrit 40.4 % (37.0-47.0); Hemoglobin 13.1 g/dL (12.2-16.2); Lymphocytes # 1.2 K/mm3 (0.7-4.5); Lymphocytes % 6.8 % (10-50); Mean Corpuscular HGB Conc 32.5 g/dL (31.8-35.4); Mean Corpuscular Hemoglobin 29.6 pg (27.0-31.2); Mean Corpuscular Volume 90.9 fl (81-99); Mean Platelet Volume 8.5 fl (7.4-10.4); Monocytes # 0.2 K/mm3 (0.1-1.0); Monocytes % 1.1 % (1.7-9.3); Neutrophils # 15.7 K/mm3 (1.8-7.8); Neutrophils % 91.8 % (37.0-80.0); Platelet Count 277 K/mm3 (142-424); Red Blood Count 4.44 M/mm3 (4.20-5.40); White Blood Count 17.1 K/mm3 (4.8-10.8)
[2020-11-17 13:07] LABS: MANUAL DIFFERENTIAL MANUAL DIFFERENTIAL (MANUAL DIFF)
[2020-11-17 13:35] LABS: Lymphocytes % 17 % (10-50); Monocytes % 2 % (2-9); Neutrophils % 81 % (42-76); Platelet Estimate Normal; RBC Morphology Normal; Total Cells Counted 100
== END 2020-11-17 12:30 | disposition home or self-care (01) ==
LOC: OR 07:06
PROVIDERS: PCP Family Medicine; Visit Provider Nurse Practitioner Obstetrics & Gynecology
PROC: (CPT 49320; principal; 2020-11-17 08:45)
DX: N94.89 Other specified conditions associated with female genital organs and menstrual cycle (principal); N80.1 Endometriosis of ovary; K21.9 Gastro-esophageal reflux disease without esophagitis; G43.909 Migraine, unspecified, not intractable, without status migrainosus; F32.9 Major depressive disorder, single episode, unspecified; Z72.0 Tobacco use; Z80.9 Family history of malignant neoplasm, unspecified; Z82.3 Family history of stroke; Z83.3 Family history of diabetes mellitus
CPT/HCPCS: 58661; 85007; 85025; 96374; J0131; J2405; J2710

== ENCOUNTER 2021-03-13 12:07 | Emergency (ER) | payer OTHER, SELFPAY ==
[2021-03-13 12:10] VITALS: BP 107/66; PULSE 96; RESP 19; TEMP 36.8; O2SAT 99; BMI 26.6
--- NOTE | 2021-03-13 12:55 | HMH.EDUTC ---
[facility] – [place] Disposition Clinical Impression: Sinusitis Qualifiers: Sinusitis location: unspecified location Chronicity: unspecified Qualified Code(s): J32.9 - Chronic sinusitis, unspecified Disposition: Home, Self-Care Condition on Discharge: Good Instructions: Sinusitis, Sinus Headache, DI for Sinusitis, DI for COVID-19 (Suspected or Confirmed ), Preventing the Spread of Coronavirus Discharge Instructions Additional Instructions: *Monitor Temp, Over the counter Motrin or Tylenol as directed/as needed Tylenol every 4 hours and Motrin every 6 hours (as long as your family doctor has told you that you can take it) for fever or pain. and straight to ER if unable to lower temp less than 101.0 after medication given *Warm salt water gargles may help to soothe the throat *Throat Lozenges *Warm fluids like tea with honey may help to soothe the throat *Sleep elevated *Humidifier/Vaporizer Take medication as prescribed Follow up with your Family Doctor if needed Straight to ER if any life threatening symptoms Follow up IMMEDIATELY for new or worsening symptoms or no Noticeable improvement over the next 48-72 hours. 911 for difficulty breathing or swallowing You were tested for today for COVID19 your test result should be back in the next 24-48 hours, you may check your COVID test results on the [facility] My Health Portal if you have trouble logging on you may call You was given a handout with instructions for Self Quarantine and Self isolation for while you wait on test results and what to do if they are positive If you are positive the Health Dept will be contacting you also Make sure to take your Vitamins Vit. C Vit D and Zinc if you can take them Prescriptions: Amoxicillin/Potassium Clav [Augmentin 875-125 Tablet] 1 tab PO Q12H 7 Days #14 tab Transmission Status: Received by [facility] methylPREDNISolone [Medrol 4mg tab] 4 mg PO DIRECTED #21 tab Transmission Status: Received by [facility] Ondansetron [Zofran 4mg ODT] 4 mg PO TIDP PRN #12 tab PRN Reason: Nausea Transmission Status: Received by [facility] Referrals: Juan Hurst MD [Primary Care Provider] - As needed Time of Disposition: 13:19 Medical Decision Making - Mehdi Inquiry Pt receiving controlled substance: No Mehdi was queried for this patient: No Vital Signs: 03/13/21 12:10 03/13/21 13:32 Temperature 98.2 F 98.2 F Temperature Source Oral Pulse Rate 96 H Pulse Rate [Right Brachial] 96 H Respiratory Rate 19 19 Blood Pressure 107/66 L Blood Pressure [Right Arm] 107/66 L Blood Pressure Mean [Right Arm] 79 Blood Pressure Source [Right Arm] Automatic Cuff Blood Pressure Position [Right Arm] Sitting 02 Sat by Pulse Oximetry 99 Oxygen Delivery Method Room Air - Lab Data Lab Results 03/13/21 12:20: Chlamy pneumoniae PCR Not detected, Adenovirus (PCR) Not detected, B. pertussis DNA (PCR) Not detected, Coronavirus OC43 (PCR) Not detected, Coronavirus HKU1 (PCR) Not detected, Coronavirus 229E (PCR) Not detected, SARS-CoV-2 (PCR) Detected A, Coronavirus NL63 (PCR) Not detected, Human Metapneumovir PCR Not detected, Influenza A (H1) PCR Not detected, Influ A (H1N1/09) PCR Not detected, Influenza A (H3) PCR Not detected, Influenza Type A (PCR) Not detected, Influenza Type B (PCR) Not detected, M. pneumoniae (PCR) Not detected, Parainfluenza 1 (PCR) Not detected, Parainfluenza 2 (PCR) Not detected, Parainfluenza 3 (PCR) Not detected, Parainfluenza 4 (PCR) Not detected, RSV (PCR) Not detected, Entero/Rhino (PCR) Not detected Orders (Tests/Meds): ED MEDICATIONS Discontinued Medications Generic Name Dose Route Start Last Admin Trade Name Freq PRN Reason Stop Dose Admin Ketorolac Tromethamine 60 mg 03/13/21 13:18 03/13/21 13:29 Ketorolac 60mg/2ml Vial IM 03/13/21 13:19 60 mg ONCE ONE Administration Medical Decision Narrative: Patient states that she has taken Toradol in the
[2021-03-13 13:32] VITALS: BP 107/66; PULSE 96; RESP 19; TEMP 36.8; O2SAT 99
[2021-03-13 13:32] LABS: Adenovirus,PCR Not Detected (NotDetected); Bordetella Pertussis Not Detected (NotDetected); Chlamydophila Pneumoniae, PCR Not Detected (NotDetected); Coronavirus 229E Not Detected (NotDetected); Coronavirus NL63 Not Detected (NotDetected); Coronavirus OC43 Not Detected (NotDetected); Coronovirus HKU1,PCR Not Detected (NotDetected); Human Metapneumovirus Not Detected (NotDetected); Influenza A, PCR Not Detected (NotDetected); Influenza AH1, 2009 Not Detected (NotDetected); Influenza AH1, PCR Not Detected (NotDetected); Influenza AH3,PCR Not Detected (NotDetected); Influenza B, PCR Not Detected (NotDetected); Mycoplasma Pneumoniae, PCR Not Detected (NotDetected); Parainfluenza 1, PCR Not Detected (NotDetected); Parainfluenza 2, PCR Not Detected (NotDetected); Parainfluenza 3, PCR Not Detected (NotDetected); Parainfluenza 4, PCR Not Detected (NotDetected); Respiratory Syncytial Virus Not Detected (NotDetected); Rhinovirus/Enterovirus Not Detected (NotDetected)
[2021-03-13 15:29] LABS: Coronavirus 19, PCR Detected (NotDetected)
== END 2021-03-13 13:40 | disposition home or self-care (01) ==
PROVIDERS: Emergency Provider Nurse Practitioner; PCP Family Medicine
DX: U07.1 COVID-19 (principal); J32.9 Chronic sinusitis, unspecified; K21.9 Gastro-esophageal reflux disease without esophagitis; F33.1 Major depressive disorder, recurrent, moderate; F17.210 Nicotine dependence, cigarettes, uncomplicated
CPT/HCPCS: 87581; 87632; 87798; 96372; 99202; C9803; G0463; U0003; U0005

== ENCOUNTER → 2021-04-19 13:51 | Outpatient (CLI) | payer OTHER, SELFPAY ==
--- NOTE | 2021-04-19 13:57 | US_ITS ---
PROCEDURE INFORMATION: Exam: US Left Breast, Complete Exam date and time: 04/19/2021 1:57 PM Age: 30 years old Clinical indication: Breast pain; Left TECHNIQUE: Imaging protocol: Complete ultrasound of all four quadrants of the Left breast and the retroareolar regions, including ultrasound of the axilla when performed. COMPARISON: No relevant prior studies available. FINDINGS: Breast: Sonographic images of the left breast including the retroareolar region, all 4 quadrants and the axilla do not demonstrate any solid masses. 0.3 cm probable debris-filled cyst in the 12 o'clock axis 5 cm from the. No architectural distortion or acoustical shadowing. No skin thickening or axillary adenopathy. IMPRESSION: Minimal probably benign cystic change in the left 12 o'clock axis. A diagnostic left mammogram is recommended for correlative purposes unless otherwise clinically indicated. In the absence of suspicious mammographic findings, a six-month follow-up targeted left breast ultrasound will be recommended. ASSESSMENT: BI-RADS Category 0: Incomplete- Need Additional Imaging Evaluation and/or Prior Mammograms for Comparison
== END ==
PROVIDERS: PCP Family Medicine; Visit Provider Nurse Practitioner Obstetrics & Gynecology
DX: N64.4 Mastodynia (principal)
CPT/HCPCS: 76641

== ENCOUNTER → 2021-06-26 13:55 | Outpatient (CLI) | payer OTHER, SELFPAY ==
--- NOTE | 2021-06-26 13:59 | MM_ITS ---
PROCEDURE INFORMATION: Exam: MG Left Diagnostic Breast Tomosynthesis Exam date and time: 06/26/2021 2:13 PM Age: 30 years old Clinical indication: Follow-up on the basis of ultrasound from 04/19/2021 for mammographic correlation to probably benign cystic change at 12 o'clock. TECHNIQUE: Imaging protocol: Left Diagnostic tomosynthesis and 2D mammography including computer-aided detection (CAD) when performed. Unilateral or bilateral exam. COMPARISON: US BREAST LT COMPLETE 04/19/2021 2:05 PM FINDINGS: MAMMOGRAPHY: 2D spot compression views demonstrate a low-density rounded 0.5 cm mass with related faint punctate calcifications which appear to layer, at 12 o'clock middle 3rd, likely corresponding to the ultrasound finding. IMPRESSION: Probably benign layering calcifications in mass corresponding to cystic change at 12 o'clock. Suggest six-month follow-up left diagnostic mammogram and targeted left breast ultrasound, unless otherwise clinically indicated. ASSESSMENT: BI-RADS Category 3: Probably benign
== END ==
PROVIDERS: PCP Family Medicine; Visit Provider Nurse Practitioner Obstetrics & Gynecology
DX: R92.8 Other abnormal and inconclusive findings on diagnostic imaging of breast (principal)
CPT/HCPCS: 77061; 77065; G0279

== ENCOUNTER → 2022-03-07 13:47 | Outpatient (CLI) | payer OTHER, SELFPAY ==
--- NOTE | 2022-03-07 13:48 | MM_ITS ---
PROCEDURE INFORMATION: Exam: US Left Breast, Complete MG Bilateral Diagnostic Breast Tomosynthesis Exam date and time: 03/07/2022 1:44 PM Age: 31 years old Clinical indication: Short-term radiographic followup; left breast mass TECHNIQUE: Imaging protocol: Complete ultrasound of all four quadrants of the Left breast and the retroareolar regions, including ultrasound of the axilla when performed. Bilateral Diagnostic tomosynthesis and 2D mammography including computer-aided detection (CAD) when performed. Unilateral or bilateral exam. COMPARISON: 1. MG MM DIG MAMM DX UNILAT LT CAD 06/26/2021 2:13 PM 2. US BREAST LT COMPLETE 04/19/2021 2:05 PM FINDINGS: MAMMOGRAPHY: The breast tissue is composed of scattered areas of fibroglandular density. There is no stellate mass, architectural distortion or suspicious microcalcifications in either breast to suggest malignancy. Previously noted 0.5 cm mass in the middle third of the left 12 o'clock axis is not seen on the current examination. No suspicious calcifications. No skin thickening or axillary adenopathy. ULTRASOUND: Sonographic images of the left breast including the retroareolar region, all 4 quadrants and the axilla do not demonstrate any solid or cystic masses. Sonographic images of the left 12 o'clock axis 5 cm from the demonstrates cursors over normal fibroglandular structures. No architectural distortion or acoustical shadowing. No skin thickening or axillary adenopathy. IMPRESSION: No mammographic or sonographic evidence of malignancy. Annual bilateral mammographic screening is recommended unless otherwise clinically indicated. ASSESSMENT: BI-RADS Category 1: Negative
== END ==
PROVIDERS: PCP Family Medicine; Visit Provider Nurse Practitioner Obstetrics & Gynecology
DX: R92.8 Other abnormal and inconclusive findings on diagnostic imaging of breast (principal); N64.59 Other signs and symptoms in breast; N63.22 Unspecified lump in the left breast, upper inner quadrant
CPT/HCPCS: 76641; 77062; 77066; G0279

== ENCOUNTER 2022-08-21 19:52 | Emergency (ER) | payer OTHER, SELFPAY ==
[2022-08-21 19:54] VITALS: BP 109/76; PULSE 77; RESP 18; TEMP 36.9; O2SAT 98; BMI 31.1
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
[2022-08-21 20:59] VITALS: BP 113/69; PULSE 85; RESP 18; TEMP 36.9; O2SAT 99
== END 2022-08-21 21:11 | disposition home or self-care (01) ==
PROVIDERS: Emergency Provider Emergency Medicine; PCP Family Medicine
DX: F17.210 Nicotine dependence, cigarettes, uncomplicated (principal); T23.262A Burn of second degree of back of left hand, initial encounter; X10.1XXA Contact with hot food, initial encounter
CPT/HCPCS: 99283; 99284

== ENCOUNTER → 2022-11-26 16:56 | Outpatient (CLI) | payer OTHER, SELFPAY ==
[2022-11-26 17:11] LABS: Coronavirus 19, PCR Not Detected (NotDetected); Influenza A, PCR Not Detected (NotDetected); Influenza B, PCR Not Detected (NotDetected)
== END ==
PROVIDERS: PCP Family Medicine; Visit Provider Nurse Practitioner Family
DX: Z20.822 Contact with and (suspected) exposure to COVID-19 (principal)
CPT/HCPCS: 87635; 87636

== ENCOUNTER → 2023-02-06 11:40 | Outpatient (CLI) | payer OTHER, SELFPAY ==
[2023-02-06 11:47] LABS: Coronavirus 19, PCR Not Detected (NotDetected); Influenza A, PCR Not Detected (NotDetected); Influenza B, PCR Not Detected (NotDetected)
== END ==
PROVIDERS: PCP Family Medicine; Visit Provider Physician Assistant
DX: J06.9 Acute upper respiratory infection, unspecified (principal)
CPT/HCPCS: 87636

== ENCOUNTER 2024-01-27 11:48 | Outpatient (CLI) | payer OTHER, SELFPAY ==
[2024-01-27 17:38] LABS: HIV (1&2) Antibody Rapid NONREACTIVE (NONREACTIVE)
[2024-01-28 09:39] LABS: HCV Ab Non Reactive (Non Reactive)
[2024-01-30 13:20] LABS: HSV-1 DNA Negative (Negative); HSV-2 DNA Negative (Negative)
== END 2024-01-27 23:59 | disposition home or self-care (01) ==
LOC: LAB 11:48
PROVIDERS: PCP Family Medicine; Visit Provider Nurse Practitioner Obstetrics & Gynecology
DX: A64 Unspecified sexually transmitted disease (principal)
CPT/HCPCS: 36415; 86803; 87389; 87529

== ENCOUNTER 2024-07-14 10:39 | Outpatient (CLI) | payer OTHER, SELFPAY ==
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
== END 2024-07-14 23:59 | disposition home or self-care (01) ==
LOC: RAD 10:41
PROVIDERS: PCP Family Medicine; Visit Provider Physician Assistant
DX: R07.81 Pleurodynia (principal)
CPT/HCPCS: 71111